=== PATIENT | female | born 1990 | race Hispanic/Latino ===

== ENCOUNTER 2024-01-08 12:14 | Day surgery (SDC) | payer OTHER ==
[~2024-01-08] VITALS: Ht 157.5 cm; Wt 69.9 kg
[~2024-01-08 12:14] MED LIST: BUPR-597 PO; FERR32TA PO; METF-1191 PO; SYNT88TA2 PO; VITA100093 PO; VITA500C24 PO
[2024-01-08] MEDS ORDERED: LIDOCAINE 1% SDV 5ML VIAL SC PRN (13:15)
[2024-01-08] MEDS ORDERED: GLUCAGON INJ 1MG VIAL SC PRN (13:15)
[2024-01-08] MEDS ORDERED: INSULIN LISPRO (NovoLOG) PER UNIT SC PRN (13:15)
[2024-01-08] MEDS ORDERED: DEXTROSE 50% 50ML SYRINGE IV PRN (13:15)
[2024-01-08] MEDS ORDERED: GLUCOSE 4 GM CHEW PO PRN (13:15)
[2024-01-08] MEDS ORDERED: NS 1,000 ML IV SCH ×2 (13:15→16:50)
[2024-01-08] MEDS: INDOCYANINE GREEN 25MG VIAL (IC-GREEN) IV ONE (15:35)
[2024-01-08] MEDS: ceFAZolin SOD 2 GM in IV 1 EA IV ONE (15:35)
[2024-01-08] MEDS ORDERED: dexmedeTOMIDine (4MCG/ML)200MCG/50ML BTL (PRECEDEX) As Ordered ONE (15:49)
[2024-01-08] MEDS ORDERED: MIDAZOLAM INJ 2MG/2ML VIAL As Ordered ONE (15:49)
[2024-01-08] MEDS ORDERED: LIDOCAINE 2% 100MG/5ML SDV (FOR ANES.) As Ordered ONE (15:49)
[2024-01-08] MEDS ORDERED: ONDANSETRON 4MG 2ML VIAL As Ordered ONE (15:49)
[2024-01-08] MEDS ORDERED: ROCURONIUM BROMIDE 50MG/5ML VIAL As Ordered ONE (15:49)
[2024-01-08] MEDS ORDERED: KETOROLAC 60MG 2ML VIAL As Ordered ONE (15:49)
[2024-01-08] MEDS ORDERED: METOCLOPRAMIDE INJ 10MG/2ML VIAL As Ordered ONE (15:49)
[2024-01-08] MEDS ORDERED: SUGAMMADEX SODIUM 500 MG/5 ML VIAL (BRIDION) As Ordered ONE (15:49)
[2024-01-08] MEDS ORDERED: fentaNYL 250 MCG/5 ML INJECTION As Ordered ONE (15:49)
[2024-01-08] MEDS ORDERED: ACETAMINOPHEN 1000MG 100ML IV BAG As Ordered ONE (15:49)
[2024-01-08] MEDS ORDERED: propofoL 200 MG/20 ML VIAL As Ordered ONE (15:49)
[2024-01-08] MEDS: HEPARIN SOD (PORCINE) 5000UNITS/ML 1ML VIAL/SYRINGE SQ ONE (16:00)
[2024-01-08] MEDS ORDERED: ePHEDrine SULFATE 25 MG/5 ML(5MG/ML) SYRINGE As Ordered ONE (16:15)
[2024-01-08] MEDS ORDERED: fentaNYL 100 MCG/2 ML INJECTION IV PRN (16:50)
[2024-01-08] MEDS: ONDANSETRON 4MG 2ML VIAL IV PRN (16:59)
[2024-01-08] MEDS: HYDROMORPHONE HCL 0.5 MG/ 0.5 ML SYRINGE IV PRN (16:59)
[2024-01-08] MEDS: oxyCODONE 5MG TAB PO PRN (17:15)
[2024-01-08 18:59] VITALS: BP 105/62; TEMP 96.8; O2SAT 99
== END 2024-01-08 19:16 | disposition home or self-care (01) ==
LOC: M SDC 12:14
PROVIDERS: ATTEND Surgery
DX: K80.10 Calculus of gallbladder with chronic cholecystitis without obstruction (principal); Z91.040 Latex allergy status; Z88.8 Allergy status to other drugs, medicaments and biological substances; Z79.899 Other long term (current) drug therapy
CPT/HCPCS: 47563; 88304; J0131; J0665; J0690; J1100; J1171; J1885; J2250; J2405; J2765; J3010; Q9968; S2900

== ENCOUNTER 2024-01-09 03:39 | Inpatient (IN) | payer OTHER ==
[~2024-01-09] VITALS: Ht 154.9 cm; Wt 71.5 kg
[2024-01-09] VITALS (11 sets, daily range): BP systolic 91–110; BP diastolic 51–63; TEMP 97.2–99; O2SAT 97–100
[2024-01-09] MEDS ORDERED: ONDANSETRON 4MG 2ML VIAL As Ordered ONE (03:55)
[2024-01-09] MEDS: ONDANSETRON 4MG 2ML VIAL IV ONE (04:01)
[2024-01-09] MEDS: HYDROMORPHONE HCL 0.5 MG/ 0.5 ML SYRINGE IV PRN (04:02)
[2024-01-09] MEDS: NS 1,000 ML IV ONE ×3 (04:04→09:00)
[2024-01-09 04:33] LABS: BASO % 0.1 % (0.0-1.0); HEMOGLOBIN 9.5 g/dl (12.0-15.5); LYMPH # 0.7 10^3/uL (1.5-5.0); LYMPH % 7.5 % (24.0-44.0); MEAN CORPUSCULAR HEMOGLOBIN 30.2 pg (27.0-33.0); MEAN CORPUSCULAR HGB CONC 33.9 g/dl (32.0-36.5); MEAN CORPUSCULAR VOLUME 88.9 fl (80.0-96.0); MONO # 0.5 10^3/uL (0.0-0.8); MONO % 4.6 % (2.0-8.0); NEUTROPHILS # 8.5 10^3/uL (1.5-8.5); NEUTROPHILS % 87.4 % (36.0-66.0); PLATELET COUNT, AUTOMATED 359 10^3/uL (150-450); RED BLOOD COUNT 3.15 10^6/uL (4.00-5.40); WHITE BLOOD COUNT 9.8 10^3/uL (4.0-10.0)
[2024-01-09 04:51] LABS: LIPASE 26 U/L (12-53)
[2024-01-09 04:53] LABS: ALBUMIN 3.4 G/DL (3.2-5.2); ALKALINE PHOSPHATASE 60 U/L (35-104); ALT/SGPT 27 U/L (7.0-40); AMYLASE 47 U/L (30-118); AST/SGOT 23 U/L (<34); BILIRUBIN,TOTAL 0.5 MG/DL (0.3-1.2); BLOOD UREA NITROGEN 15 MG/DL (9-23); CALCIUM LEVEL 8.9 MG/DL (8.5-10.1); CARBON DIOXIDE LEVEL 21 MMOL/L (20-31); CHLORIDE LEVEL 106 MMOL/L (98-107); CREATININE FOR GFR 0.87 MG/DL (0.55-1.30); GLOMERULAR FILTRATION RATE > 60.0 (>60); GLUCOSE, FASTING 157 MG/DL (60-100); POTASSIUM SERUM 4.4 MMOL/L (3.5-5.1); SODIUM LEVEL 137 MMOL/L (136-145); TOTAL PROTEIN 6.4 G/DL (5.7-8.2)
[2024-01-09 04:55] LABS: FREE T4 1.12 NG/DL (0.89-1.76)
[2024-01-09 04:56] LABS: THYROID STIMULATING HORMONE 1.425 uIU/ML (0.55-4.78)
[2024-01-09 07:59] LABS: BASO % 0.2 % (0.0-1.0); HEMATOCRIT 22.5 % (36.0-47.0); HEMOGLOBIN 7.5 g/dl (12.0-15.5); LYMPH # 0.7 10^3/uL (1.5-5.0); MEAN CORPUSCULAR HEMOGLOBIN 29.9 pg (27.0-33.0); MEAN CORPUSCULAR HGB CONC 33.3 g/dl (32.0-36.5); MEAN CORPUSCULAR VOLUME 89.6 fl (80.0-96.0); MONO # 0.4 10^3/uL (0.0-0.8); MONO % 5.9 % (2.0-8.0); NEUTROPHILS # 5.5 10^3/uL (1.5-8.5); NEUTROPHILS % 83.3 % (36.0-66.0); PLATELET COUNT, AUTOMATED 240 10^3/uL (150-450); RED BLOOD COUNT 2.51 10^6/uL (4.00-5.40); WHITE BLOOD COUNT 6.6 10^3/uL (4.0-10.0)
[2024-01-09] MEDS ORDERED: ISOVUE-370 76% 100ML VIAL As Ordered ONE (08:29)
[2024-01-09 08:32] LABS: ALBUMIN 2.9 G/DL (3.2-5.2); BILIRUBIN,DIRECT 0.1 MG/DL (<0.4); BILIRUBIN,TOTAL 0.4 MG/DL (0.3-1.2); TOTAL PROTEIN 5.1 G/DL (5.7-8.2)
[2024-01-09] MEDS: ACETAMINOPHEN *IV* 1,000 MG in IV 1 EA IV ONE (09:01)
[2024-01-09] MEDS: PIPERACILLIN/TAZOBACTAM SOD 4.5 GM in DEXTROSE 5% (D5W) ADV/MINI-BAG 50 ML IV ONE (09:31)
[2024-01-09] MEDS ORDERED: METOCLOPRAMIDE INJ 10MG/2ML VIAL IV PRN (09:35)
[2024-01-09] MEDS ORDERED: HOME MED LIST COMPLETE! XX SCH (10:05)
[2024-01-09] MEDS: ONDANSETRON 4MG 2ML VIAL IV PRN (11:33)
[2024-01-09] MEDS: FAMOTIDINE 20 MG TAB PO SCH (11:34)
[2024-01-09] MEDS: KCL 20MEQ IN D5/0.45NS 1000ML 1,000 ML IV SCH (11:34)
[2024-01-09] MEDS: ACETAMINOPHEN 325 MG TAB PO PRN (20:36)
[2024-01-10 04:00] VITALS: BP 105/57; TEMP 97; O2SAT 98
[2024-01-10 06:57] LABS: BASO % 0.2 % (0.0-1.0); EOS % 0.4 % (0.0-3.0); HEMATOCRIT 24.3 % (36.0-47.0); LYMPH # 1.8 10^3/uL (1.5-5.0); LYMPH % 33.4 % (24.0-44.0); MEAN CORPUSCULAR HEMOGLOBIN 28.6 pg (27.0-33.0); MEAN CORPUSCULAR HGB CONC 32.9 g/dl (32.0-36.5); MEAN CORPUSCULAR VOLUME 86.8 fl (80.0-96.0); MONO # 0.4 10^3/uL (0.0-0.8); MONO % 7.8 % (2.0-8.0); NEUTROPHILS % 57.8 % (36.0-66.0); PLATELET COUNT, AUTOMATED 175 10^3/uL (150-450); WHITE BLOOD COUNT 5.2 10^3/uL (4.0-10.0)
[2024-01-10] MEDS: LEVOTHYROXINE 88MCG TABLET (0.088 MG) PO SCH (07:57)
[2024-01-10 08:00] VITALS: BP 105/64; TEMP 97.2; O2SAT 100
[2024-01-10] MEDS: buPROPion **XL** TABLET 150MG (WELLBUTRIN XL) PO SCH (08:21)
[2024-01-10] MEDS: LORATADINE 10 MG TAB PO ONE (10:46)
[2024-01-10 12:00] VITALS: BP 108/66; TEMP 97.3; O2SAT 99
[2024-01-10] MEDS: PIPERACILLIN/TAZOBACTAM SOD 3.375 GM in DEXTROSE 5% (D5W) ADV/MINI-BAG 50 ML IV SCH (12:14)
[2024-01-10 16:00] VITALS: BP 108/65; TEMP 96.8; O2SAT 100
[2024-01-10] MEDS: oxyCODONE 5MG TAB PO PRN (18:57)
[2024-01-10 20:08] VITALS: BP 101/64; TEMP 97.4; O2SAT 99
[2024-01-10] MEDS: MORPHINE 2 MG/ML 1ML VIAL IV PRN (20:40)
[2024-01-11] VITALS: BP 109/61; TEMP 97.1; O2SAT 97
[2024-01-11 04:00] VITALS: BP 105/65; TEMP 97.3; O2SAT 97
[2024-01-11 07:30] LABS: HEMATOCRIT 25.9 % (36.0-47.0); HEMOGLOBIN 8.7 g/dl (12.0-15.5); MEAN CORPUSCULAR HEMOGLOBIN 29.1 pg (27.0-33.0); MEAN CORPUSCULAR HGB CONC 33.6 g/dl (32.0-36.5); MEAN CORPUSCULAR VOLUME 86.6 fl (80.0-96.0); PLATELET COUNT, AUTOMATED 207 10^3/uL (150-450); RED BLOOD COUNT 2.99 10^6/uL (4.00-5.40); WHITE BLOOD COUNT 4.8 10^3/uL (4.0-10.0)
[2024-01-11] MEDS: LORATADINE 10 MG TAB PO ONE (11:26)
== END 2024-01-11 13:20 | disposition home or self-care (01) | DRG 921 ==
LOC: EDBD 03:39 → M ED 03:39 → M ED INP 09:34 → UNDOADMIN 09:34 → M MS5PR 17:00 → M ED INP 19:14
PROVIDERS: ADMIT Surgery; ATTEND Surgery
PROC: 30233N1 Transfusion of Nonautologous Red Blood Cells into Peripheral Vein, Percutaneous Approach (ICD-10-PCS; principal; 2024-01-09)
DX: L76.32 Postprocedural hematoma of skin and subcutaneous tissue following other procedure (principal); E78.00 Pure hypercholesterolemia, unspecified; E28.2 Polycystic ovarian syndrome; Z90.49 Acquired absence of other specified parts of digestive tract; Z79.890 Hormone replacement therapy; Z79.84 Long term (current) use of oral hypoglycemic drugs; Z79.899 Other long term (current) drug therapy; Z91.040 Latex allergy status; Z88.6 Allergy status to analgesic agent

== ENCOUNTER → 2024-01-24 | Outpatient (REF) | payer OTHER | LOC: M LAB REF 18:15 | PROVIDERS: ATTEND Physician Assistant Medical | DX: N39.0 Urinary tract infection, site not specified (principal) ==

== ENCOUNTER 2024-02-10 12:47 | Emergency (ER) | payer OTHER ==
[~2024-02-10] VITALS: Ht 154.9 cm; Wt 68.1 kg
[2024-02-10 14:06] LABS: BASO % 0.2 % (0.0-1.0); EOS # 0.1 10^3/uL (0.0-0.5); EOS % 2.6 % (0.0-3.0); HEMATOCRIT 38.8 % (36.0-47.0); HEMOGLOBIN 13.2 g/dl (12.0-15.5); LYMPH % 24.2 % (24.0-44.0); MEAN CORPUSCULAR HEMOGLOBIN 30.2 pg (27.0-33.0); MEAN CORPUSCULAR VOLUME 88.8 fl (80.0-96.0); MONO # 0.3 10^3/uL (0.0-0.8); MONO % 7.5 % (2.0-8.0); NEUTROPHILS # 2.8 10^3/uL (1.5-8.5); NEUTROPHILS % 65.3 % (36.0-66.0); PLATELET COUNT, AUTOMATED 230 10^3/uL (150-450); RED BLOOD COUNT 4.37 10^6/uL (4.00-5.40); WHITE BLOOD COUNT 4.3 10^3/uL (4.0-10.0)
[2024-02-10 14:28] LABS: ALBUMIN 4.1 G/DL (3.2-5.2); ALKALINE PHOSPHATASE 80 U/L (35-104); ALT/SGPT 25 U/L (7.0-40); AST/SGOT 12 U/L (<34); BILIRUBIN,DIRECT 0.1 MG/DL (<0.4); BILIRUBIN,TOTAL 0.3 MG/DL (0.3-1.2); BLOOD UREA NITROGEN 6 MG/DL (9-23); CALCIUM LEVEL 9.6 MG/DL (8.5-10.1); CARBON DIOXIDE LEVEL 27 MMOL/L (20-31); CHLORIDE LEVEL 106 MMOL/L (98-107); CREATININE FOR GFR 0.49 MG/DL (0.55-1.30); GLOMERULAR FILTRATION RATE > 60.0 (>60); GLUCOSE, FASTING 127 MG/DL (60-100); POTASSIUM SERUM 3.7 MMOL/L (3.5-5.1); SODIUM LEVEL 141 MMOL/L (136-145)
[2024-02-10 14:38] LABS: HCG, SERUM QUALITATIVE NEGATIVE (NEGATIVE)
[2024-02-10] MEDS ORDERED: ISOVUE-370 76% 100ML VIAL As Ordered ONE (16:32)
[2024-02-10] MEDS: ACETAMINOPHEN *IV* 1,000 MG in IV 1 EA IV ONE (16:38)
[2024-02-10 19:00] VITALS: BP 110/64; TEMP 97.9; O2SAT 100
== END 2024-02-10 19:01 | disposition home or self-care (01) ==
LOC: M ED 12:47
DX: G89.18 Other acute postprocedural pain (principal); E28.2 Polycystic ovarian syndrome; E06.3 Autoimmune thyroiditis; Z88.8 Allergy status to other drugs, medicaments and biological substances; Z91.040 Latex allergy status; Z79.84 Long term (current) use of oral hypoglycemic drugs; Z79.899 Other long term (current) drug therapy
CPT/HCPCS: 74177; 80048; 80076; 83605; 84703; 85025; 96374; 99283; J0131; Q9967

== ENCOUNTER → 2024-02-26 | Outpatient (CLI) | payer OTHER ==
[~2024-02-26] MED LIST changes: +ISOVUE-370 76% 100ML VIAL As Ordered ONE
== END ==
LOC: M RAD 08:38
PROVIDERS: ATTEND Surgery
DX: R10.9 Unspecified abdominal pain (principal); Z97.8 Presence of other specified devices
CPT/HCPCS: 74177; Q9967

== ENCOUNTER 2024-02-28 11:34 | Emergency (ER) | payer OTHER ==
[~2024-02-28] VITALS: Ht 154.9 cm; Wt 67.5 kg
[~2024-02-28 11:34] MED LIST changes: -ISOVUE-370 76% 100ML VIAL As Ordered ONE
[2024-02-28 14:43] LABS: BASO % 0.4 % (0.0-1.0); EOS # 0.1 10^3/uL (0.0-0.5); EOS % 2.3 % (0.0-3.0); HEMATOCRIT 36.8 % (36.0-47.0); HEMOGLOBIN 12.5 g/dl (12.0-15.5); LYMPH # 1.5 10^3/uL (1.5-5.0); LYMPH % 29.2 % (24.0-44.0); MEAN CORPUSCULAR HEMOGLOBIN 29.8 pg (27.0-33.0); MEAN CORPUSCULAR VOLUME 87.8 fl (80.0-96.0); MONO # 0.3 10^3/uL (0.0-0.8); MONO % 6.6 % (2.0-8.0); NEUTROPHILS # 3.1 10^3/uL (1.5-8.5); NEUTROPHILS % 61.1 % (36.0-66.0); PLATELET COUNT, AUTOMATED 341 10^3/uL (150-450); RED BLOOD COUNT 4.19 10^6/uL (4.00-5.40); WHITE BLOOD COUNT 5.1 10^3/uL (4.0-10.0)
[2024-02-28 15:27] LABS: ALKALINE PHOSPHATASE 87 U/L (35-104); ALT/SGPT 17 U/L (7.0-40); AST/SGOT 12 U/L (<34); BILIRUBIN,TOTAL 0.3 MG/DL (0.3-1.2); BLOOD UREA NITROGEN < 5 MG/DL (9-23); CALCIUM LEVEL 9.5 MG/DL (8.5-10.1); CARBON DIOXIDE LEVEL 27 MMOL/L (20-31); CHLORIDE LEVEL 106 MMOL/L (98-107); CREATININE FOR GFR 0.49 MG/DL (0.55-1.30); GLOMERULAR FILTRATION RATE > 60.0 (>60); GLUCOSE, FASTING 81 MG/DL (60-100); POTASSIUM SERUM 3.8 MMOL/L (3.5-5.1); SODIUM LEVEL 142 MMOL/L (136-145)
[2024-02-28] MEDS ORDERED: ISOVUE-370 76% 100ML VIAL As Ordered ONE (15:44)
[2024-02-28] MEDS: LIDOCAINE 1% MDV 20ML VIAL SC ONE (17:15)
[2024-02-28] MEDS: ACETAMINOPHEN 500 MG TAB PO ONE (17:39)
[2024-02-28 18:10] VITALS: BP 127/75; TEMP 97; O2SAT 100
== END 2024-02-28 18:13 | disposition home or self-care (01) ==
LOC: M ED 11:34
DX: T88.9XXA Complication of surgical and medical care, unspecified, initial encounter (principal); E28.2 Polycystic ovarian syndrome; E06.9 Thyroiditis, unspecified; F32.A Depression, unspecified; Z88.8 Allergy status to other drugs, medicaments and biological substances; Z91.040 Latex allergy status; Z79.84 Long term (current) use of oral hypoglycemic drugs; Z79.899 Other long term (current) drug therapy
CPT/HCPCS: 36415; 74177; 80053; 85025; 96372; 99284; Q9967